=== PATIENT | male | born 1955 | race African-American/Black ===

== ENCOUNTER 2017-08-05 11:35 | Inpatient (IN) | payer MEDICARE ==
[2017-08-05 12:54] LABS: ALT (SGPT) 58 U/L (8-55); AST (SGOT) 108 U/L (5-34); Alkaline Phosphatase 51 U/L (40-150); Anion Gap 19 mmol/L (10-20); BUN (Urea Nitrogen) 11 mg/dL (8.4-25.7); Bilirubin, Total 0.8 mg/dL (0.2-1.2); CK (CPK) 3083 U/L (30-200); Calc. Creatinine Clearance 0 mL/min (70-130); Calcium 9.2 mg/dL (7.8-10.44); Carbon Dioxide 21 mmol/L (22-29); Chloride 107 mmol/L (98-107); Estimated GFR-MDRD Greater than 90; Globulin 2.9 g/dL (2.4-3.5); Protein, Total 6.7 g/dL (6.0-8.3)
[2017-08-05 12:56] LABS: Troponin I 0.044 ng/mL (< 0.028)
[2017-08-05 13:14] LABS: #Lymphocytes 0.9 thou/uL (1.20-3.40); #Monocytes 0.7 thou/uL (0.11-0.59); #Neutrophils 8.9 thou/uL (1.40-6.50); %Basophils 0.2 % (0.0-1.0); %Eosinophils 0.1 % (0.0-10.0); %Lymphocytes 8.1 % (21.0-51.0); %Monocytes 6.8 % (0.0-10.0); Hematocrit 44.2 % (42.0-52.0); Mean Platelet Volume 6.9 fL (7.4-10.4); Red Blood Cell (RBC) Count 4.38 mill/uL (4.70-6.10); White Blood Cell (WBC) Count 10.5 thou/uL (4.8-10.8)
[2017-08-05 13:21] LABS: Prothrombin Time 13.9 SEC (12.0-14.7)
[2017-08-05] MEDS ORDERED: Aspirin 325 MG TAB ONE (13:24)
[2017-08-05 13:29] LABS: PTT 28.7 SEC (22.9-36.1)
--- NOTE | 2017-08-05 14:00 | CT ---
CT BRAIN NONCONTRAST: DATE: 08/05/17. TIME: 12:42 p.m. HISTORY: A 61-year-old male with acute stroke symptoms: dysarthria and dysphagia. Dr. Hastings verbally gave this report to Dr. Le of the emergency department at 12:50 p.m. on 08/05/17 . COMPARISON: 09/30/15. FINDINGS: There is a new finding of several small- to moderate-sized patchy regions of moderately low attenuati on representing cytotoxic edema involving cortex and underlying white matter, involving various areas of the left lateral perisylvian frontal lobe and left parietal lobe. There is no significant mass e ffect, and no evidence of hemorrhage. Ventricles are normal in size and configuration. No extraaxia l fluid collection. Calvarium is intact. IMPRESSION: Subacute or acute multifocal infarctions in the left middle cerebral artery territory. CODE CR JN R POS: TERA
--- NOTE | 2017-08-05 15:27 | HP ---
PRIMARY CARE PHYSICIAN: [facility] call admission. REASON FOR ADMISSION: Stroke. HISTORY OF PRESENT ILLNESS: A 61-year-old -Faroese male with a history of hypertension and c oronary artery disease who presented to the emergency room with expressive aphasia. The patient woke up around 1:00 a.m. At that time, he urinated by himself and after that he was having difficulty ex pressing himself. When he was trying to talk to his daughter on the phone around 5:30 a.m., he was n ot able to come up with the words and that is why patient's daughter called paramedics and subsequent ly the patient was brought to the emergency room. Patient's symptoms started around 1:00 a.m. and patient's daughter from [place] called paramedics arou nd 10:30. Patient continued to have difficulty speaking. He did not have any focal motor or sensory symptoms. He denied any headache, chest pain, palpitation, dizziness, and fall. This patient had similar type of problem in 2016. At that time, he had MRI brain which showed stroke in left MCA territory and this time CT brain also showed multifocal infarct in left MCA territory. The patient was having difficulty providing detailed history because of his expressive aphasia. REVIEW OF SYSTEMS: The following complete review of systems was negative, unless otherwise mentioned in the HPI or below: Constitutional: Weight loss or gain, ability to conduct usual activities. Skin: Rash, itching. Eyes: Double vision, pain. ENT/Mouth: Nose bleeding, neck stiffness, pain, tenderness. Cardiovascular: Palpitations, dyspnea on exertion, orthopnea. Respiratory: Shortness of breath, wheezing, cough, hemoptysis, fever or night sweats. Gastrointestinal: Poor appetite, abdominal pain, heartburn, nausea, vomiting, constipation, or diarr hea. Genitourinary: Urgency, frequency, dysuria, nocturia. Musculoskeletal: Pain, swelling. Neurologic/Psychiatric: Anxiety, depression. Allergy/Immunologic: Skin rash, bleeding tendency. Please see my HPI for pertinent positive and negative. All other review of systems reviewed and nega tive except as mentioned in the HPI. ALLERGIES: No known drug allergies. CURRENT HOME MEDICATIONS: The patient did not have any medication with him at this point, but based on our hospital discharge summary from last year, patient was discharged on the following medications ; Aggrenox 1 capsule p.o. b.i.d., Tenormin 25 mg p.o. daily, Lipitor 80 mg p.o. daily, and Zetia 10 m g p.o. daily. PAST MEDICAL HISTORY: History of NM, required CABG in 1999, hypertension, dyslipidemia, history of C VA in 2016. PAST SURGICAL HISTORY: CABG in 1999. The patient also has laparoscopic surgical scar on his abdomen , but patient is not able to tell me whether it was related with gallbladder or appendix, left knee s urgery as well as right knee arthroscopic sugery. PAST PSYCHIATRIC HISTORY: Reviewed and negative. SOCIAL HISTORY: Patient drinks 2 or 3 beers on a daily basis. He denies any smoking. He denies any other illicit drug abuse. FAMILY HISTORY: As per previous report, patient does not have any strong family history of premature coronary artery disease, stroke or cancer. Father from lymphoma. EMERGENCY ROOM COURSE: Patient is given aspirin. PHYSICAL EXAMINATION: VITAL SIGNS: Currently, blood pressure 152/82, pulse 69, respiratory rate 18, temperature 98.6, satu ration 96% on room air, and weight 80.2 kilograms. GENERAL: Patient is currently alert, awake, no obvious acute distress. HEAD: Normocephalic, atraumatic. EYES: Pupils round, reactive to light. Extraocular muscle intact. No nystagmus. ENT: Oropharynx within normal limits. Moist mucous membranes. Uvula within normal limits and centr al. No pharyngeal erythema, no exudate. NECK: Supple, no JVD, no thyromegaly, no carotid bruit. LUNGS: Clear to auscultation without any rhonchi or rales. CARDIAC: S1 and S2 regular, soft systolic murmur noted. No gallop, no rub. ABDOMEN: Soft, bowel sounds present, nontender, nondistended. No organomegaly, no mass. Laparoscop ic surgical scar noted. Chest wall; previous CABG scar noted. No reproducible discomfort. BACK: Examination unremarkable, no CVA tenderness. EXTREMITIES: Upper extremity passive movements of all joints are normal. Lower extremity passive mo vements of all joints are normal. Good distal pulsation. SKIN: No skin rash. HEMATOLOGICAL SYSTEM: No lymphadenopathy. PSYCHIATRIC: Normal affect. NEUROLOGIC: The patient is currently alert and oriented x3. Cranial nerve III-XII normal. No facia l asymmetry. Motor 5/5 in all four limbs. Sensation bilaterally symmetrical. Reflexes normal. Minerva nter bilateral flexor. Only problem noted is patient does have expressive aphasia. Sometimes he als o has difficulty coming up with name. IMAGING DATA AND SIGNIFICANT LABORATORY DATA: 1. EKG based on my review reveals normal sinus rhythm, low voltage QRS. 2. CT brain showed subacute versus acute multifocal infarction in left middle cerebral artery territ ory. 3. CBC: WBC 10.5, hemoglobin 14.6, MCV 101, platelets 198. INR 1.1. 4. BMP: Sodium 143, potassium 3.9, chloride 107, carbon dioxide 21, BUN 11, creatinine 0.93, glucos e 114, calcium 9.2. 5. LFT: AST 108, ALT 58, alkaline phosphatase 51, albumin 3.8, CK 3083, CK-MB 15.5, troponin I 0.04 4. ASSESSMENT AND PLAN/IMPRESSION: 1. Acute cerebrovascular accident. This patient's symptoms of expressive aphasia started at 1:00 a. m. He was brought to the emergency room around 11. He is out of the TPA window. He only has expres sive aphasia without any focal motor or sensory deficits. His CT brain already confirmed acute/subac red devil multiple infarction in left MCA territory. He also had a similar stroke last year in 2016. At t his point, we will check urine drug screen, lipid profile tomorrow morning along with homocysteine. We will consult Neurology and entire Stroke team will evaluate this patient while in hospital. We wi ll continue with aspirin 325 mg p.o. daily. Given recurrent nature, we will also add Plavix 75 mg p. o. daily. We will monitor on telemetry floor for any arrhythmia. We will also obtain echocardiograp hy. We will do neuro check every 4 hourly. 2. Rhabdomyolysis. We will check TSH, probably related with his statin use, but if total CK going u p, then we will discontinue statin therapy. At this point, we will continue with IV fluid with NS 70 mL per hour and we will repeat total CK tomorrow. We will also do 3 sets of cardiac enzyme. 3. Elevated troponin likely related with his rhabdomyolysis given elevated total CK, CK-MB, and trop onin I is indeterminate range. We will do 3 sets of cardiac enzymes to rule out acute coronary syndr ome. Patient is already on aspirin and Plavix therapy. We are going to obtain echocardiography. 4. Abnormal liver function tests related with his alcohol use. We will check hepatitis profile to r ule out any hepatitis. We will repeat LFTs tomorrow. 5. Macrocytosis, likely related with his alcohol use. We will continue with folic acid and vitamin B12 and thiamine therapy. 6. Coronary artery disease with history of coronary artery bypass grafting. We will continue aspiri n and Plavix. We will also add Coreg 3.125 mg p.o. b.i.d. We will also add lisinopril 5 mg p.o. dom ly. 7. Dyslipidemia. We will check lipid profile and at this point, we will continue with Lipitor and Z etia as per home dosage. We will repeat CK level and LFT levels again tomorrow. 8. Deep venous thrombosis prophylaxis, Lovenox 40 mg subcu daily. 9. Gastrointestinal prophylaxis, Pepcid 20 mg p.o. b.i.d. 10. Code status: The patient is FULL CODE. Patient's daughter is surrogate decision maker. Disposition plan based on clinical course. We are expecting patient's stay in the hospital more than 2 midnights. Plan of care discussed with the patient in detail.
[2017-08-05] MEDS ORDERED: Nitroglycerin 0.4 MG TAB (25 Tab Bottle) SL PRN (15:44)
[2017-08-05] MEDS ORDERED: Sodium Chloride 0.65% Nasal 44 ML BOT EA NARE PRN (15:44)
[2017-08-05] MEDS ORDERED: Eucerin (Mineral Oil/Petrolatum,White) 30 gm Jar TOP PRN (15:44)
[2017-08-05] MEDS ORDERED: Loperamide HCl 2 MG CAP PO PRN (15:44)
[2017-08-05] MEDS ORDERED: Senokot 8.6 MG TAB PO PRN (15:44)
[2017-08-05] MEDS ORDERED: Ondansetron ODT 4 MG TAB PO PRN (15:44)
[2017-08-05] MEDS ORDERED: Ondansetron HCl/PF 4 MG/2 ML Vial IVP PRN (15:44)
[2017-08-05] MEDS ORDERED: Milk Of Magnesia 30 ML UDCUP PO PRN (15:44)
[2017-08-05] MEDS ORDERED: Loratadine 10 MG TAB PO PRN (15:44)
[2017-08-05] MEDS ORDERED: Artificial Tears 18 DROP/0.9 ML EA EYE PRN (15:44)
[2017-08-05] MEDS ORDERED: Mag-Al 1200 mg/1200 mg/30 ML UDCUP PO PRN (15:44)
[2017-08-05] MEDS ORDERED: hydrALAZINE 20 MG/ML VIAL SLOW IVP PRN (15:44)
[2017-08-05] MEDS ORDERED: Zolpidem Tartrate 5 MG TAB PO PRN (15:44)
[2017-08-05] MEDS ORDERED: Chloraseptic Spray 180 ml Bottle PO PRN (15:44)
[2017-08-05] MEDS ORDERED: Diabetic Tussin 200 MG/10 ML UDCUP PO PRN (15:44)
[2017-08-05 16:18] LABS: Troponin I 0.054 ng/mL (< 0.028)
[2017-08-05] MEDS ORDERED: ISOVUE-370 76%-LOCM 1 ML ONE (17:10)
[2017-08-05] MEDS: Sodium Chloride 0.9% 1,000 ML IV SCH (17:40)
[2017-08-05 18:05] VITALS: BMI 21.4
[2017-08-05 20:02] LABS: Troponin I 0.048 ng/mL (< 0.028)
--- NOTE | 2017-08-05 20:56 | MRI ---
MRI BRAIN: Date: 08-05-17 Provided Clinical History: Stroke. FINDINGS: Comparison is made with the CT examination performed 08-05-17. The ventricular system remains normal in size and morphology. There is no evidence for intracranial h emorrhage or mass effect. There are multifocal areas of predominately cortical and to some degree sub cortical diffusion restriction involving the left MCA distribution, predominately involving the left parietal and parietooccipital regions. No additional restricted diffusion is evident. Appropriate julieta w voids are seen within the major intracranial vessels. Occasional opacification of mastoid air cells bilaterally. The extracranial soft tissues and calvarial marrow signal demonstrate an otherwise unre markable MR appearance. There is cortical and subcortical predominately gyriform signal alteration in volving the right parietooccipital region which does not demonstrate corresponding restricted diffusi on and likely reflects subacute infarction in this region. IMPRESSION: 1. Restricted diffusion within the left MCA distribution compatible with recent infarction. 2. Likely subacute infarction involving the right parietooccipital region. Follow up brain MRI in 6-1 2 weeks with and without IV contrast is recommended to further evaluate this area. POS: TERA
--- NOTE | 2017-08-05 21:44 | CT ---
CT ANGIOGRAM OF THE GREAT VESSELS OF THE NECK WITH IV CONTRAST AND 3D RECONSTRUCTION: Date: 08-05-17 Provided Clinical History: Stroke. FINDINGS: The visualized lung apices appear clear. There is a common origin of the innominate and left common c arotid arteries. There is mild atherosclerotic plaque seen involving the regions of the carotid bulbs bilaterally. There is no evidence for a significant stenosis involving either common or internal car otid artery. The vertebral arteries appear patent. IMPRESSION: No evidence for significant internal carotid artery stenosis. POS: TERA
--- NOTE | 2017-08-05 22:13 | CON ---
DATE OF CONSULTATION: 07/26/2017 REFERRING PROVIDER: Dr. Kristen Vargas. REASON FOR CONSULTATION: Expressive aphasia. HISTORY OF PRESENT ILLNESS: Mr. Stanley is a pleasant 61-year-old -Sammarinese male who has been c onsidered for evaluation of aphasia. Part of the history is obtained from patient as well as patient 's dictated H&P note. Apparently, the patient reports that he had been in his normal state of health on last night, he had gone to sleep without any issues; around 1:30 at night, he woke up to go to [facility] bathroom; during that time, he started leaning toward his right side and he had an accident. He di d not seek any medical attention at that time and went back to sleep around 5:30 in the morning, he c alled his daughter and was not able to talk. His daughter noted that his speech was not making any s ense, which made her call the EMS and patient was brought to the [facility] around 12: 30. Patient did not complain of any headache, chest pain, palpitation, nausea, vomiting, abdominal p ain, numbness, tingling or weakness. He did not have any difficulty with balance. PAST MEDICAL HISTORY: Significant for hypertension, history of CT, coronary artery disease, dyslipid emia, and history of stroke in 2016. PAST SURGICAL HISTORY: Significant for CABG. SOCIAL HISTORY: He drinks 2-3 beers on a daily basis. He denies smoking, denies illicit drug use. FAMILY HISTORY: None significant. CURRENT MEDICATIONS: Please review MAR. ALLERGIES: No known drug allergies. REVIEW OF SYSTEMS: As mentioned above in HPI, is negative. PHYSICAL EXAMINATION: VITAL SIGNS: Blood pressure of 162/84, pulse of 58, temperature of 99, respirations of 18, O2 sats o f 100% on room air. GENERAL: Well-developed, well-nourished -Sammarinese male in no apparent distress. RESPIRATORY: Clear to auscultation bilaterally. CARDIOVASCULAR: Regular rate and rhythm. NEUROLOGIC: Mental status: The patient is awake, alert, oriented x2. Speech and language: Moderat e expressive aphasia noted. Cranial nerves: Pupils are 3 mm and reactive. Visual quick are full t o finger counts on both sides. Extraocular muscles are intact. No nystagmus is noted. Face is symm etric. Tongue and uvula are midline. Motor exam showed normal tone and bulk with a 5/5 strength in both upper and lower extremities. Sensory: Sensation is intact and symmetric. Deep tendon reflexes 2+ reflexes in both upper and lower extremities. Babinski: Plantar responses flexion bilaterally. Coordination intact to [id number] tapping bilaterally. LABORATORY DATA: Reviewed, which included CBC, coag panel, CMP, which is significant for an AST of 5 8, alkaline phosphatase of 3083, CK-MB of 15.5 and troponin of 0.054, otherwise unremarkable. IMAGING STUDIES: MRI brain without contrast was reviewed, which showed DWI restriction in the left M CA territory in the posterior parietal region. Carotid Doppler results were reviewed, which showed n o hemodynamically significant stenosis. IMPRESSION: 1. Left middle cerebral artery distribution ischemic infarct. 2. Expressive aphasia, due to #1. 3. Hypertension. 4. History of myocardial infarction. ASSESSMENT AND PLAN: Mr. Stanley is a pleasant 61-year-old -Sammarinese male who presented with ex pressive aphasia. He is found to have large left middle cerebral artery distribution ischemic infarc t. At this time, I would recommend obtaining echocardiogram with bubble study. I will also recommen d continuing patient on aspirin 325 mg daily for secondary stroke prevention. I would consult PT, OT , speech therapy. I would also recommend obtaining CT angiogram of the neck. Continue supportive ca re. Continue current medical management. Thank you for your consultation.
[2017-08-05] MEDS: Atorvastatin Calcium 40 MG TAB PO SCH (22:49)
[2017-08-05] MEDS: Carvedilol 3.125 MG TAB PO SCH (22:50)
[2017-08-05] MEDS: Famotidine 20 MG TAB PO SCH (22:50)
[2017-08-06 05:33] LABS: #Lymphocytes 1.9 thou/uL (1.20-3.40); #Monocytes 0.7 thou/uL (0.11-0.59); #Neutrophils 4.8 thou/uL (1.40-6.50); %Basophils 0.4 % (0.0-1.0); %Eosinophils 0.6 % (0.0-10.0); %Lymphocytes 25.7 % (21.0-51.0); %Monocytes 8.8 % (0.0-10.0); Red Blood Cell (RBC) Count 4.01 mill/uL (4.70-6.10); White Blood Cell (WBC) Count 7.5 thou/uL (4.8-10.8)
[2017-08-06 05:38] LABS: Prothrombin Time 14.4 SEC (12.0-14.7)
[2017-08-06 05:50] LABS: ALT (SGPT) 45 U/L (8-55); AST (SGOT) 84 U/L (5-34); Alkaline Phosphatase 43 U/L (40-150); Anion Gap 11 mmol/L (10-20); BUN (Urea Nitrogen) 10 mg/dL (8.4-25.7); Bilirubin, Total 0.9 mg/dL (0.2-1.2); CK (CPK) 2124 U/L (30-200); Calc. Creatinine Clearance 98 mL/min (70-130); Calcium 8.4 mg/dL (7.8-10.44); Carbon Dioxide 25 mmol/L (22-29); Chloride 109 mmol/L (98-107); Cholesterol 178 mg/dl (< 200 Desired); Estimated GFR-MDRD Greater than 90; Globulin 2.3 g/dL (2.4-3.5); LDL Cholesterol, Calculated 104 mg/dL; Protein, Total 5.4 g/dL (6.0-8.3)
[2017-08-06] MEDS: Sodium Chloride 0.9% 1,000 ML IV SCH ×2 (09:24→21:04)
[2017-08-06] MEDS: Ezetimibe 10 MG TAB PO SCH (09:25)
[2017-08-06] MEDS: Aspirin 325 MG TAB PO SCH (09:25)
[2017-08-06] MEDS: Carvedilol 3.125 MG TAB PO SCH ×2 (09:25→21:00)
[2017-08-06] MEDS: Lisinopril 5 MG TAB PO SCH (09:25)
[2017-08-06] MEDS: Famotidine 20 MG TAB PO SCH ×2 (09:25→20:59)
[2017-08-06] MEDS: Clopidogrel Bisulfate 75 MG TAB PO SCH (09:25)
[2017-08-06] MEDS: Folic Acid 1 MG TAB PO SCH (09:25)
[2017-08-06] MEDS: Cyanocobalamin (Vitamin B-12) 1,000 MCG TAB PO SCH (09:25)
[2017-08-06] MEDS: Enoxaparin Sodium 40 MG/0.4 ML SYRINGE SC SCH (09:27)
--- NOTE | 2017-08-06 11:29 | PDOC.PN ---
- Subjective Encounter Start Date: 08/06/17 Encounter Start Time: 07:20 -: old records requested/rev pt has some improvement in his expressive aphasia, no chest pain Patient seen and examined. No new complaints. No overnight events - Objective Resuscitation Status: Resuscitation Status FULL:Full Resuscitation MAR Reviewed: Yes Vital Signs & Weight: Vital Signs (12 hours) Temp Pulse Resp BP BP Pulse Ox 08/06/17 09:25 65 157/96 H 08/06/17 08:00 98.8 F 65 18 98 08/06/17 07:05 98.8 F 65 18 157/96 H 98 08/06/17 03:40 99.1 F 65 18 149/92 H 98 Weight Weight 153 lb 6.4 oz I&O: 08/05/17 08/06/17 08/07/17 06:59 06:59 06:59 Intake Total 310 240 Output Total 0 Balance 310 240 Result Diagrams: 08/06/17 05:14 08/06/17 05:14 Radiology Reviewed by me: Yes (MRI, CT angiography) EKG Reviewed by me: Yes (nsr) Phys Exam - Physical Examination Constitutional: NAD HEENT: PERRLA, moist MMs, sclera anicteric Neck: no JVD, supple Respiratory: no wheezing, no rales, no rhonchi Cardiovascular: RRR, no significant murmur, no rub Gastrointestinal: soft, non-tender, no distention, positive bowel sounds Musculoskeletal: no edema, pulses present Neurological: non-focal, normal sensation, moves all 4 limbs Lymphatic: no nodes Psychiatric: normal affect, A&O x 3 Skin: no rash, normal turgor Dx/Plan (1) Acute ischemic left MCA stroke Code(s): I63.512 - CEREB INFRC D/T UNSP OCCLS OR STENOS OF LEFT MID CEREB ART Status: Acute (2) Elevated troponin Code(s): R74.8 - ABNORMAL LEVELS OF OTHER SERUM ENZYMES Status: Acute (3) Rhabdomyolysis Code(s): M62.82 - RHABDOMYOLYSIS Status: Acute (4) CAD (coronary artery disease) Code(s): I25.10 - ATHSCL HEART DISEASE OF [place] CORONARY ARTERY W/O ANG PCTRS Status: Chronic (5) Dyslipidemia Code(s): E78.5 - HYPERLIPIDEMIA, UNSPECIFIED Status: Chronic (6) Hypertension Code(s): I10 - ESSENTIAL (PRIMARY) HYPERTENSION Status: Chronic (7) Macrocytic anemia Code(s): D53.9 - NUTRITIONAL ANEMIA, UNSPECIFIED Status: Chronic (8) Transaminitis Code(s): R74.0 - NONSPEC ELEV OF LEVELS OF TRANSAMNS & LACTIC ACID DEHYDRGNSE Status: Chronic - Plan cont current plan of care, PT/OT, speech therapy * medication reviewed as below * symptomatic treatment * medically stable with current treatment * discussed with family * today echo. Review of Systems - Review of Systems ENT: negative: Ear Pain, Ear Discharge, Nose Pain, Nose Discharge, Nose Congestion, Mouth Pain, Mouth Swelling, Throat Pain, Throat Swelling, Other Respiratory: negative: Cough, Dry, Shortness of Breath, Hemoptysis, SOB with Excertion, Pleuritic Pain, Sputum, Wheezing Cardiovascular: negative: Chest Pain, Palpitations, Orthopnea, Paroxysmal Noc. Dyspnea, Edema, Light Headedness, Other Gastrointestinal: negative: Nausea, Vomiting, Abdominal Pain, Diarrhea, Constipation, Melena, Hematochezia, Other Genitourinary: negative: Dysuria, Frequency, Incontinence, Hematuria, Retention , Other Musculoskeletal: negative: Neck Pain, Shoulder Pain, Arm Pain, Back Pain, Hand Pain, Leg Pain, Foot Pain, Other Skin: negative: Rash, Lesions, Tip, Bruising, Other - Medications/Allergies Allergies/Adverse Reactions: Allergies Allergy/AdvReac Type Severity Reaction Status Date / Time No Known Allergies Allergy Verified 08/05/17 18:02 Medications: Current Medications Acetaminophen (Tylenol) 650 mg PO Q4H PRN PRN Reason: Headache/Fever or Pain Hydrocodone Bitart/Acetaminophen ([place] 5/325) 1 tab PO Q4H PRN PRN Reason: Moderate Pain (4-6) Al Hydroxide/Mg Hydroxide (Maalox) 30 ml PO Q6H PRN PRN Reason: Heartburn or Indigestion Artificial Tears (Tears Naturale) 0 drop EA EYE PRN PRN PRN Reason: Dry Eyes Aspirin (Aspirin) 325 mg PO DAILY [facility] Last Admin: 08/06/17 09:25 Dose: 325 mg Atorvastatin Calcium (Lipitor) 80 mg PO HS [facility] Last Admin: 08/05/17 22:49 Dose: 80 mg Carvedilol (Coreg) 3.125 mg PO BID [facility] Last Admin: 08/06/17 09:25 Dose: 3.125 mg Clopidogrel Bisulfate (Plavix) 75 mg PO DAILY [facility] Last Admin: 08/06/17 09:25 Dose: 75 mg Cyanocobalamin (Vitamin B-12) 1,000 mcg PO DAILY [facility] Last Admin: 08/06/17 09:25 Dose: 1,000 mcg Ezetimibe (Zetia) 10 mg PO DAILY [facility] Last Admin: 08/06/17 09:25 Dose: 10 mg Enoxaparin Sodium (Lovenox) 40 mg SC 0900 [facility] Last Admin: 08/06/17 09:27 Dose: 40 mg Famotidine (Pepcid) 20 mg PO BID [facility] Last Admin: 08/06/17 09:25 Dose: 20 mg Folic Acid (Folvite) 1 mg PO DAILY [facility] Last Admin: 08/06/17 09:25 Dose: 1 mg Guaifenesin (Robitussin Sf) 200 mg PO Q4H PRN PRN Reason: Cough Hydralazine HCl (Apresoline) 10 mg SLOW IVP Q4H PRN PRN Reason: Systolic BP > 180 Sodium Chloride (Normal Saline 0.9%) 1,000 mls @ 70 mls/hr IV .[id number] [facility] Last Admin: 08/06/17 09:24 Dose: 1,000 mls Lisinopril (Zestril) 5 mg PO DAILY [facility] Last Admin: 08/06/17 09:25 Dose: 5 mg Loperamide HCl (Imodium) 2 mg PO PRN PRN PRN Reason: Diarrhea/Loose Stools Loratadine (Claritin) 10 mg PO DAILYPRN PRN PRN Reason: Sinus Symptoms Magnesium Hydroxide (Milk Of Magnesium) 30 ml PO DAILYPRN PRN PRN Reason: Constipation Mineral Oil/White Petrolatum (Eucerin Cream) 0 gm TOP BIDPRN PRN PRN Reason: Dry Skin Nitroglycerin (Nitrostat) 0.4 mg SL Q5MIN PRN PRN Reason: Chest Pain Ondansetron HCl (Zofran Odt) 4 mg PO Q6H PRN PRN Reason: Nausea/Vomiting Ondansetron HCl (Zofran) 4 mg IVP Q6H PRN PRN Reason: Nausea/Vomiting Phenol (Chloraseptic Cost 180 Ml Bot) 0 ml PO PRN PRN PRN Reason: Sore Throat Senna (Senokot) 2 tab PO HSPRN PRN PRN Reason: Constipation Sodium Chloride ([place] Nasal Cost 0.65%) 0 ml EA NARE QIDPRN PRN PRN Reason: Nasal Congestion Sodium Chloride (Flush - Normal Saline) 10 ml IVF Q12HR [facility] Last Admin: 08/06/17 09:26 Dose: 10 ml Sodium Chloride (Flush - Normal Saline) 10 ml IVF PRN PRN PRN Reason: Saline Flush Thiamine HCl (Thiamine) 100 mg PO DAILY [facility] Last Admin: 08/06/17 09:25 Dose: 100 mg Zolpidem Tartrate (Ambien) 5 mg PO HSPRN PRN PRN Reason: Insomnia
[2017-08-06] MEDS: Atorvastatin Calcium 40 MG TAB PO SCH (20:59)
[2017-08-07] MEDS: Cyanocobalamin (Vitamin B-12) 1,000 MCG TAB PO SCH (08:24)
[2017-08-07] MEDS: Aspirin 325 MG TAB PO SCH (08:24)
[2017-08-07] MEDS: Enoxaparin Sodium 40 MG/0.4 ML SYRINGE SC SCH (08:24)
[2017-08-07] MEDS: Carvedilol 3.125 MG TAB PO SCH ×2 (08:24→20:48)
[2017-08-07] MEDS: Lisinopril 5 MG TAB PO SCH (08:24)
[2017-08-07] MEDS: Clopidogrel Bisulfate 75 MG TAB PO SCH (08:24)
[2017-08-07] MEDS: Famotidine 20 MG TAB PO SCH ×2 (08:24→20:47)
[2017-08-07] MEDS: HYDROcodone/Acetaminophen 5/325 mg Tablet PO PRN ×3 (09:20→23:50)
[2017-08-07] MEDS: Ezetimibe 10 MG TAB PO SCH (09:21)
[2017-08-07] MEDS: Folic Acid 1 MG TAB PO SCH (09:21)
--- NOTE | 2017-08-07 12:34 | PDOC.PN ---
- Subjective Encounter Start Date: 08/07/17 Encounter Start Time: 10:20 Patient seen and examined. No new complaints. No overnight events - Objective Resuscitation Status: Resuscitation Status FULL:Full Resuscitation MAR Reviewed: Yes Vital Signs & Weight: Vital Signs (12 hours) Temp Pulse Pulse Pulse Resp BP BP 08/07/17 11:57 98.0 F 62 20 08/07/17 08:50 69 68 134/80 146/80 H 08/07/17 08:25 98.0 F 62 20 08/07/17 08:24 62 08/07/17 08:00 98.1 F 62 20 08/07/17 03:04 98.6 F 52 L 16 BP Pulse Ox 08/07/17 11:57 142/83 H 99 08/07/17 08:50 08/07/17 08:25 99 08/07/17 08:24 08/07/17 08:00 135/78 99 08/07/17 03:04 162/86 H 98 Weight Admit Weight 153 lb 6.4 oz Weight 157 lb 6.4 oz I&O: 08/06/17 08/07/17 08/08/17 06:59 06:59 06:59 Intake Total 310 3179 Output Total 0 350 Balance 310 2829 Result Diagrams: 08/06/17 05:14 08/06/17 05:14 Radiology Reviewed by me: Yes (echo) EKG Reviewed by me: Yes (nsr) Phys Exam - Physical Examination Constitutional: NAD HEENT: PERRLA, moist MMs, sclera anicteric Neck: no JVD, supple Respiratory: no wheezing, no rales, no rhonchi Cardiovascular: RRR, no significant murmur, no rub Gastrointestinal: soft, non-tender, no distention, positive bowel sounds Musculoskeletal: no edema, pulses present Neurological: non-focal, normal sensation Lymphatic: no nodes Psychiatric: normal affect Skin: no rash, normal turgor Dx/Plan (1) Acute ischemic left MCA stroke Code(s): I63.512 - CEREB INFRC D/T UNSP OCCLS OR STENOS OF LEFT MID CEREB ART Status: Acute (2) Elevated troponin Code(s): R74.8 - ABNORMAL LEVELS OF OTHER SERUM ENZYMES Status: Acute (3) Rhabdomyolysis Code(s): M62.82 - RHABDOMYOLYSIS Status: Acute (4) CAD (coronary artery disease) Code(s): I25.10 - ATHSCL HEART DISEASE OF [place] CORONARY ARTERY W/O ANG PCTRS Status: Chronic (5) Dyslipidemia Code(s): E78.5 - HYPERLIPIDEMIA, UNSPECIFIED Status: Chronic (6) Hypertension Code(s): I10 - ESSENTIAL (PRIMARY) HYPERTENSION Status: Chronic (7) Macrocytic anemia Code(s): D53.9 - NUTRITIONAL ANEMIA, UNSPECIFIED Status: Chronic (8) Transaminitis Code(s): R74.0 - NONSPEC ELEV OF LEVELS OF TRANSAMNS & LACTIC ACID DEHYDRGNSE Status: Chronic - Plan cont current plan of care, PT/OT, speech therapy * medication reviewed as below * symptomatic treatment * stable for discharge * see discharge warren. Review of Systems - Review of Systems ENT: negative: Ear Pain, Ear Discharge, Nose Pain, Nose Discharge, Nose Congestion, Mouth Pain, Mouth Swelling, Throat Pain, Throat Swelling, Other Respiratory: negative: Cough, Dry, Shortness of Breath, Hemoptysis, SOB with Excertion, Pleuritic Pain, Sputum, Wheezing Cardiovascular: negative: chest pain, palpitations, orthopnea, paroxysmal nocturnal dyspnea, edema, light headedness, other Gastrointestinal: negative: Nausea, Vomiting, Abdominal Pain, Diarrhea, Constipation, Melena, Hematochezia, Other Genitourinary: negative: Dysuria, Frequency, Incontinence, Hematuria, Retention , Other Musculoskeletal: negative: Neck Pain, Shoulder Pain, Arm Pain, Back Pain, Hand Pain, Leg Pain, Foot Pain, Other Skin: negative: Rash, Lesions, Tip, Bruising, Other - Medications/Allergies Allergies/Adverse Reactions: Allergies Allergy/AdvReac Type Severity Reaction Status Date / Time No Known Allergies Allergy Verified 08/05/17 18:02 Medications: Current Medications Acetaminophen (Tylenol) 650 mg PO Q4H PRN PRN Reason: Headache/Fever or Pain Hydrocodone Bitart/Acetaminophen ([place] 5/325) 1 tab PO Q4H PRN PRN Reason: Moderate Pain (4-6) Last Admin: 08/07/17 09:20 Dose: 1 tab Al Hydroxide/Mg Hydroxide (Maalox) 30 ml PO Q6H PRN PRN Reason: Heartburn or Indigestion Artificial Tears (Tears Naturale) 0 drop EA EYE PRN PRN PRN Reason: Dry Eyes Aspirin (Aspirin) 325 mg PO DAILY REPLACED BY [facility] Last Admin: 08/07/17 08:24 Dose: 325 mg Atorvastatin Calcium (Lipitor) 80 mg PO HS REPLACED BY [facility] Last Admin: 08/06/17 20:59 Dose: 80 mg Carvedilol (Coreg) 3.125 mg PO BID REPLACED BY [facility] Last Admin: 08/07/17 08:24 Dose: 3.125 mg Clopidogrel Bisulfate (Plavix) 75 mg PO DAILY REPLACED BY [facility] Last Admin: 08/07/17 08:24 Dose: 75 mg Cyanocobalamin (Vitamin B-12) 1,000 mcg PO DAILY REPLACED BY [facility] Last Admin: 08/07/17 08:24 Dose: 1,000 mcg Ezetimibe (Zetia) 10 mg PO DAILY REPLACED BY [facility] Last Admin: 08/07/17 09:21 Dose: 10 mg Enoxaparin Sodium (Lovenox) 40 mg SC 0900 REPLACED BY [facility] Last Admin: 08/07/17 08:24 Dose: 40 mg Famotidine (Pepcid) 20 mg PO BID REPLACED BY [facility] Last Admin: 08/07/17 08:24 Dose: 20 mg Folic Acid (Folvite) 1 mg PO DAILY REPLACED BY [facility] Last Admin: 08/07/17 09:21 Dose: 1 mg Guaifenesin (Robitussin Sf) 200 mg PO Q4H PRN PRN Reason: Cough Hydralazine HCl (Apresoline) 10 mg SLOW IVP Q4H PRN PRN Reason: Systolic BP > 180 Sodium Chloride (Normal Saline 0.9%) 1,000 mls @ 70 mls/hr IV .[id number] REPLACED BY [facility] Last Admin: 08/06/17 21:04 Dose: 1,000 mls Lisinopril (Zestril) 5 mg PO DAILY REPLACED BY [facility] Last Admin: 08/07/17 08:24 Dose: 5 mg Loperamide HCl (Imodium) 2 mg PO PRN PRN PRN Reason: Diarrhea/Loose Stools Loratadine (Claritin) 10 mg PO DAILYPRN PRN PRN Reason: Sinus Symptoms Magnesium Hydroxide (Milk Of Magnesium) 30 ml PO DAILYPRN PRN PRN Reason: Constipation Mineral Oil/White Petrolatum (Eucerin Cream) 0 gm TOP BIDPRN PRN PRN Reason: Dry Skin Nitroglycerin (Nitrostat) 0.4 mg SL Q5MIN PRN PRN Reason: Chest Pain Ondansetron HCl (Zofran Odt) 4 mg PO Q6H PRN PRN Reason: Nausea/Vomiting Ondansetron HCl (Zofran) 4 mg IVP Q6H PRN PRN Reason: Nausea/Vomiting Phenol (Chloraseptic [place] 180 Ml Bot) 0 ml PO PRN PRN PRN Reason: Sore Throat Senna (Senokot) 2 tab PO HSPRN PRN PRN Reason: Constipation Sodium Chloride ([place] Nasal [place] 0.65%) 0 ml EA NARE QIDPRN PRN PRN Reason: Nasal Congestion Sodium Chloride (Flush - Normal Saline) 10 ml IVF Q12HR REPLACED BY [facility] Last Admin: 08/07/17 09:05 Dose: Not Given Sodium Chloride (Flush - Normal Saline) 10 ml IVF PRN PRN PRN Reason: Saline Flush Thiamine HCl (Thiamine) 100 mg PO DAILY REPLACED BY [facility] Last Admin: 08/07/17 08:22 Dose: Not Given Zolpidem Tartrate (Ambien) 5 mg PO HSPRN PRN PRN Reason: Insomnia
[2017-08-07] MEDS: Sodium Chloride 0.9% 1,000 ML IV SCH (13:26)
[2017-08-07] MEDS: Atorvastatin Calcium 40 MG TAB PO SCH (20:48)
[2017-08-08] MEDS: Sodium Chloride 0.9% 1,000 ML IV SCH ×2 (01:59→04:32)
[2017-08-08] MEDS: Acetaminophen 325 MG TAB PO PRN ×3 (04:30→20:06)
[2017-08-08 07:33] LABS: #Lymphocytes 0.8 thou/uL (1.20-3.40); #Monocytes 0.9 thou/uL (0.11-0.59); #Neutrophils 5.8 thou/uL (1.40-6.50); %Basophils 0.2 % (0.0-1.0); %Eosinophils 0.2 % (0.0-10.0); %Lymphocytes 10.8 % (21.0-51.0); %Monocytes 11.8 % (0.0-10.0); Hematocrit 43.9 % (42.0-52.0); Mean Platelet Volume 8.2 fL (7.4-10.4); Red Blood Cell (RBC) Count 4.35 mill/uL (4.70-6.10); White Blood Cell (WBC) Count 7.5 thou/uL (4.8-10.8)
--- NOTE | 2017-08-08 07:52 | RAD ---
TWO VIEWS CHEST: HISTORY: Fever. FINDINGS: PA and lateral views of the chest were obtained. The lungs are well aerated. No evidence of active intrathoracic disease is seen. No evidence of effusions, pneumonia, or pneumothorax is seen. Sterno dony wires are seen. IMPRESSION: Normal 2 views chest. POS: [facility]
[2017-08-08 08:12] LABS: Anion Gap 15 mmol/L (10-20); BUN (Urea Nitrogen) 4 mg/dL (8.4-25.7); CK (CPK) 980 U/L (30-200); Calc. Creatinine Clearance 99 mL/min (70-130); Calcium 8.7 mg/dL (7.8-10.44); Carbon Dioxide 21 mmol/L (22-29); Chloride 108 mmol/L (98-107); Estimated GFR-MDRD Greater than 90
[2017-08-08] MEDS: Aspirin 325 MG TAB PO SCH (09:09)
[2017-08-08] MEDS: Ezetimibe 10 MG TAB PO SCH (09:09)
[2017-08-08] MEDS: Cyanocobalamin (Vitamin B-12) 1,000 MCG TAB PO SCH (09:09)
[2017-08-08] MEDS: Clopidogrel Bisulfate 75 MG TAB PO SCH (09:09)
[2017-08-08] MEDS: Folic Acid 1 MG TAB PO SCH (09:09)
[2017-08-08] MEDS: Lisinopril 5 MG TAB PO SCH (09:09)
[2017-08-08] MEDS: Carvedilol 3.125 MG TAB PO SCH ×2 (09:10→20:07)
[2017-08-08] MEDS: Famotidine 20 MG TAB PO SCH ×2 (09:10→20:07)
[2017-08-08] MEDS: Enoxaparin Sodium 40 MG/0.4 ML SYRINGE SC SCH (09:10)
[2017-08-08] MEDS ORDERED: Ketorolac Tromethamine 30 MG/ML VIAL IVP PRN (09:12)
[2017-08-08] MEDS ORDERED: Colchicine 0.6 MG TAB PO SCH (09:45)
--- NOTE | 2017-08-08 10:39 | RAD ---
RIGHT KNEE FOUR VIEWS: History: Right knee swelling. FINDINGS/IMPRESSION: There are marked degenerative changes in the right knee. No fracture or dislocation or bony destructi on is seen. A joint effusion is present. POS: [facility]
[2017-08-08 11:31] LABS: BF Reference Range Comment Note:
--- NOTE | 2017-08-08 11:33 | PDOC.PN ---
- Subjective Encounter Start Date: 08/08/17 Encounter Start Time: 07:10 last night pt had fever, he developed right knee swelling, - Objective Resuscitation Status: Resuscitation Status FULL:Full Resuscitation MAR Reviewed: Yes Vital Signs & Weight: Vital Signs (12 hours) Temp Pulse Resp BP Pulse Ox 08/08/17 09:09 75 08/08/17 08:00 99.2 F 75 16 159/59 H 100 08/08/17 03:38 100.0 F H 73 14 157/95 H 99 08/07/17 23:38 102.2 F H 72 16 155/83 H 100 Weight Admit Weight 153 lb 6.4 oz Weight 157 lb 6.4 oz I&O: 08/07/17 08/08/17 08/09/17 06:59 06:59 06:59 Intake Total 3179 1012 Output Total 350 Balance 2829 1012 Result Diagrams: 08/08/17 07:22 08/08/17 07:22 Radiology Reviewed by me: Yes (chest xray is normal) EKG Reviewed by me: Yes (nsr) Phys Exam - Physical Examination Constitutional: NAD HEENT: PERRLA, moist MMs, sclera anicteric Neck: no JVD, supple Respiratory: no wheezing, no rales, no rhonchi Cardiovascular: RRR, no significant murmur, no rub Gastrointestinal: soft, non-tender, no distention, positive bowel sounds Musculoskeletal: no edema, pulses present right knee swelling Neurological: non-focal, normal sensation, moves all 4 limbs expressive aphasia Lymphatic: no nodes Psychiatric: normal affect, A&O x 3 Skin: no rash, normal turgor Dx/Plan (1) Acute ischemic left MCA stroke Code(s): I63.512 - CEREB INFRC D/T UNSP OCCLS OR STENOS OF LEFT MID CEREB ART Status: Acute (2) Elevated troponin Code(s): R74.8 - ABNORMAL LEVELS OF OTHER SERUM ENZYMES Status: Acute (3) Rhabdomyolysis Code(s): M62.82 - RHABDOMYOLYSIS Status: Acute (4) CAD (coronary artery disease) Code(s): I25.10 - ATHSCL HEART DISEASE OF [place] CORONARY ARTERY W/O ANG PCTRS Status: Chronic (5) Dyslipidemia Code(s): E78.5 - HYPERLIPIDEMIA, UNSPECIFIED Status: Chronic (6) Hypertension Code(s): I10 - ESSENTIAL (PRIMARY) HYPERTENSION Status: Chronic (7) Macrocytic anemia Code(s): D53.9 - NUTRITIONAL ANEMIA, UNSPECIFIED Status: Chronic (8) Transaminitis Code(s): R74.0 - NONSPEC ELEV OF LEVELS OF TRANSAMNS & LACTIC ACID DEHYDRGNSE Status: Chronic (9) Fever Code(s): R50.9 - FEVER, UNSPECIFIED Status: Acute (10) Swelling of knee joint, right Code(s): M25.461 - EFFUSION, RIGHT KNEE Status: Acute (11) Systolic dysfunction Code(s): I51.9 - HEART DISEASE, UNSPECIFIED Status: Acute - Plan cont current plan of care * DC IVF * chest xray is normal * will send blood and urine culture * influenza is negative * will get xray right knee * will consult ortho for arthrocentesis * suspected for acute gout vs sepsis (unlikely) * his CRP is high but uric acid is normal ?? CPPD * i will start colchicine and toradol as needed * will avoid antibiotic for now * medication reviewed as below * symptomatic treatment. Review of Systems - Review of Systems Constitutional: fever. negative: chills, sweats, weakness, malaise, other ENT: negative: Ear Pain, Ear Discharge, Nose Pain, Nose Discharge, Nose Congestion, Mouth Pain, Mouth Swelling, Throat Pain, Throat Swelling, Other Respiratory: negative: Cough, Dry, Shortness of Breath, Hemoptysis, SOB with Excertion, Pleuritic Pain, Sputum, Wheezing Cardiovascular: negative: chest pain, palpitations, orthopnea, paroxysmal nocturnal dyspnea, edema, light headedness, other Gastrointestinal: negative: Nausea, Vomiting, Abdominal Pain, Diarrhea, Constipation, Melena, Hematochezia, Other Genitourinary: negative: Dysuria, Frequency, Incontinence, Hematuria, Retention , Other Musculoskeletal: Leg Pain. negative: Neck Pain, Shoulder Pain, Arm Pain, Back Pain, Hand Pain, Foot Pain, Other - Medications/Allergies Allergies/Adverse Reactions: Allergies Allergy/AdvReac Type Severity Reaction Status Date / Time No Known Allergies Allergy Verified 08/05/17 18:02 Medications: Current Medications Acetaminophen (Tylenol) 650 mg PO Q4H PRN PRN Reason: Headache/Fever or Pain Last Admin: 08/08/17 04:30 Dose: 650 mg Hydrocodone Bitart/Acetaminophen ([place] 5/325) 1 tab PO Q4H PRN PRN Reason: Moderate Pain (4-6) Last Admin: 08/07/17 23:50 Dose: 1 tab Al Hydroxide/Mg Hydroxide (Maalox) 30 ml PO Q6H PRN PRN Reason: Heartburn or Indigestion Artificial Tears (Tears Naturale) 0 drop EA EYE PRN PRN PRN Reason: Dry Eyes Aspirin (Aspirin) 325 mg PO DAILY [facility] Last Admin: 08/08/17 09:09 Dose: 325 mg Atorvastatin Calcium (Lipitor) 80 mg PO HS [facility] Last Admin: 08/07/17 20:48 Dose: 80 mg Carvedilol (Coreg) 3.125 mg PO BID [facility] Last Admin: 08/08/17 09:10 Dose: 3.125 mg Clopidogrel Bisulfate (Plavix) 75 mg PO DAILY [facility] Last Admin: 08/08/17 09:09 Dose: 75 mg Colchicine (Colcrys) 0.6 mg PO BID [facility] Colchicine (Colcrys) 0.6 mg PO NOW [facility] Stop: 08/08/17 11:45 Cyanocobalamin (Vitamin B-12) 1,000 mcg PO DAILY [facility] Last Admin: 08/08/17 09:09 Dose: 1,000 mcg Ezetimibe (Zetia) 10 mg PO DAILY [facility] Last Admin: 08/08/17 09:09 Dose: 10 mg Enoxaparin Sodium (Lovenox) 40 mg SC 0900 [facility] Last Admin: 08/08/17 09:10 Dose: 40 mg Famotidine (Pepcid) 20 mg PO BID [facility] Last Admin: 08/08/17 09:10 Dose: 20 mg Folic Acid (Folvite) 1 mg PO DAILY [facility] Last Admin: 08/08/17 09:09 Dose: 1 mg Guaifenesin (Robitussin Sf) 200 mg PO Q4H PRN PRN Reason: Cough Hydralazine HCl (Apresoline) 10 mg SLOW IVP Q4H PRN PRN Reason: Systolic BP > 180 Sodium Chloride (Normal Saline 0.9%) 1,000 mls @ 70 mls/hr IV .[id number] [facility] Last Admin: 08/08/17 04:32 Dose: 1,000 mls Ketorolac Tromethamine (Toradol) 15 mg IVP Q6H PRN PRN Reason: Pain Stop: 08/13/17 09:13 Lisinopril (Zestril) 5 mg PO DAILY [facility] Last Admin: 08/08/17 09:09 Dose: 5 mg Loperamide HCl (Imodium) 2 mg PO PRN PRN PRN Reason: Diarrhea/Loose Stools Loratadine (Claritin) 10 mg PO DAILYPRN PRN PRN Reason: Sinus Symptoms Magnesium Hydroxide (Milk Of Magnesium) 30 ml PO DAILYPRN PRN PRN Reason: Constipation Mineral Oil/White Petrolatum (Eucerin Cream) 0 gm TOP BIDPRN PRN PRN Reason: Dry Skin Nitroglycerin (Nitrostat) 0.4 mg SL Q5MIN PRN PRN Reason: Chest Pain Ondansetron HCl (Zofran Odt) 4 mg PO Q6H PRN PRN Reason: Nausea/Vomiting Ondansetron HCl (Zofran) 4 mg IVP Q6H PRN PRN Reason: Nausea/Vomiting Phenol (Chloraseptic [place] 180 Ml Bot) 0 ml PO PRN PRN PRN Reason: Sore Throat Senna (Senokot) 2 tab PO HSPRN PRN PRN Reason: Constipation Sodium Chloride ([place] Nasal [place] 0.65%) 0 ml EA NARE QIDPRN PRN PRN Reason: Nasal Congestion Sodium Chloride (Flush - Normal Saline) 10 ml IVF Q12HR [facility] Last Admin: 08/08/17 09:10 Dose: 10 ml Sodium Chloride (Flush - Normal Saline) 10 ml IVF PRN PRN PRN Reason: Saline Flush Thiamine HCl (Thiamine) 100 mg PO DAILY [facility] Last Admin: 08/08/17 09:09 Dose: 100 mg Zolpidem Tartrate (Ambien) 5 mg PO HSPRN PRN PRN Reason: Insomnia
[2017-08-08 11:52] LABS: Bilirubin Negative (Negative); Blood, Urine Negative (Negative); Glucose, Urine (Dipstick) Negative (Negative); Ketone, Urine 15 mg/dL (Negative); Nitrite Negative (Negative); Protein, Urine (Dipstick) Negative (Neg-Trace)
[2017-08-08 11:56] LABS: Bacteria/HPF None Seen HPF (None Seen); Hyaline Casts/LPF 0-3 HYALINE CAST LPF (0-3 Hyaline); RBC/HPF 0-3 HPF (0-3); Squamous Epithelial None Seen HPF (0-3); WBC/HPF None Seen HPF (0-3)
[2017-08-08 12:02] LABS: Amphetamine Not Detected (NotDetected); Methadone Not Detected (NotDetected); Methamphetamine Not Detected (NotDetected)
[2017-08-08 12:37] LABS: BF Color Yellow
[2017-08-08 12:38] LABS: RBC Count-Automated 20000 /cumm
[2017-08-08 12:58] LABS: Synovial Fluid, Glucose 38 mg/dL (Not Available); Synovial Fluid, Protein 2.9 g/dL (Not Available)
[2017-08-08 13:15] LABS: Number Cells Counted-Fluids 100
--- NOTE | 2017-08-08 13:26 | CON ---
ORTHOPEDIC CONSULTATION NOTE DATE OF CONSULTATION: 08/08/2017 REQUESTING PHYSICIAN: Dr. Kristen Vargas. CONSULTING PHYSICIAN: Dr. Aleksandr Pritchard. REASON FOR CONSULTATION: Right knee effusion. BRIEF CLINICAL HISTORY: Mr. Goss is a 61-year-old -[place] male who [facility] after he had an abrupt onset of speech aphasia. A lacunar infarct was confirme d and his symptomatology has been slowly improving, but he still has an expressive aphasia. It is mi ld, but his vocabulary is still relatively full. He has been running temperatures up to 102.2 in the last 24 hours. He does not have a white count, but the Medicine Service has struggled to find a bobby rce for his fevers. Our service was consulted for evaluation of a swollen right knee, which has been a little worse than it normally is and his baseline is arthritic, but more recently he has had progr essive swelling and discomfort in his knee. PAST MEDICAL HISTORY: Significant for peripheral vascular disease, hypertension, hyperlipidemia and he has had a coronary artery bypass graft in 1999 and a prior stroke last year. PHYSICAL EXAMINATION: Visual inspection of the right lower extremity demonstrates him having indeed a +2-3 effusion over the right knee. It is tender, it is warm and quite swollen and tense. Pain wit h range of motion is appreciated. He is neurovascularly intact in the right lower extremity, but the re is no gross erythema noted. IMAGING STUDIES: Two views of the right knee demonstrates significant severe tricompartmental osteoa rthritic changes with significant articular osteophytes and an effusion appreciated on lateral view. IMPRESSION: 1. Deep white matter cerebrovascular accident with resultant expressive aphasia. 2. Fever of unknown origin. 3. Right knee, severe effusion. PLAN: 1. We will perform arthrocentesis at the bedside and send contents for laboratory evaluation determi kali if this is a septic arthritis overlying an arthritic effusion. The risks, benefits, options, alt ernatives and rationale for proceeding with right knee arthrocentesis has been explained in great det ail with the patient. He is ready to proceed. All questions were answered. No guarantee of outcome has been stated or implied. 2. Please see procedure note.
[2017-08-08 13:41] LABS: Synovial Fluid, Uric Acid Less than 5.0 mg/dL (Not Available)
--- NOTE | 2017-08-08 15:39 | OP ---
DATE OF PROCEDURE: 08/08/2017 SURGEON: Sukhdev Olivia PA-C. ANESTHESIA: Skin wheal, 1% without epinephrine PROCEDURE: Needle arthrocentesis, right knee. PREPROCEDURAL DIAGNOSIS: Right knee severe effusion. INDICATIONS FOR SURGERY: Wolfgang is a 61-year-old white male with an unknown fever. We were requested by the Medicine Service to evaluate his right knee effusion as a possible source for his fever. PROCEDURE IN DETAIL: After informed consent was obtained, the patient was positioned appropriately a nd the right knee was then prepped and draped in the usual sterile fashion. Skin wheal anesthesia wa s obtained with a 1% Xylocaine with a 25-gauge needle down to the capsule. I then entered the capsul e with an 18-gauge 1/2-inch needle with nice return of unobstructed yellow serous cloudy fluid. A to rosenda of 145 mL was removed from the patient's right knee. The needle was then withdrawn. Sterile justo ssing was applied. The procedure was terminated without any complications. Specimen will be sent fo r Gram stain, culture and sensitivity, crystal analysis, cell count with differential, glucose, prote in, and chemistry. We will follow up with the Medicine Service after results return.
[2017-08-08] MEDS: Atorvastatin Calcium 40 MG TAB PO SCH (20:06)
[2017-08-08] MEDS: Colchicine 0.6 MG TAB PO SCH (20:06)
[2017-08-09] MEDS: Acetaminophen 325 MG TAB PO PRN (06:41)
[2017-08-09] MEDS ORDERED: cefTRIAXone\\ROCEPHIN 2 GM in Sodium Chloride 0.9% 100 ML IVPB SCH (08:00)
[2017-08-09] MEDS ORDERED: Vancomycin HCl 1 GM in Premix Bag 1 BAG IVPB SCH (09:00)
[2017-08-09] MEDS: Cyanocobalamin (Vitamin B-12) 1,000 MCG TAB PO SCH (09:32)
[2017-08-09] MEDS: Aspirin 325 MG TAB PO SCH (09:32)
[2017-08-09] MEDS: Enoxaparin Sodium 40 MG/0.4 ML SYRINGE SC SCH (09:32)
[2017-08-09] MEDS: Famotidine 20 MG TAB PO SCH ×2 (09:32→20:33)
[2017-08-09] MEDS: Carvedilol 3.125 MG TAB PO SCH ×2 (09:33→20:31)
[2017-08-09] MEDS: Folic Acid 1 MG TAB PO SCH (09:33)
[2017-08-09] MEDS: Clopidogrel Bisulfate 75 MG TAB PO SCH (09:33)
[2017-08-09] MEDS: Ezetimibe 10 MG TAB PO SCH (09:33)
[2017-08-09] MEDS: Colchicine 0.6 MG TAB PO SCH ×2 (09:34→20:31)
[2017-08-09] MEDS: Lisinopril 5 MG TAB PO SCH (09:34)
[2017-08-09] MEDS ORDERED: predniSONE 20 MG TAB PO SCH (10:15)
--- NOTE | 2017-08-09 10:19 | PDOC.PN ---
- Subjective Encounter Start Date: 08/09/17 Encounter Start Time: 07:00 last night pt had fever, he still has swelling in right knee, clinically pt feels better and rather wanted to go home - Objective Resuscitation Status: Resuscitation Status FULL:Full Resuscitation MAR Reviewed: Yes Vital Signs & Weight: Vital Signs (12 hours) Temp Pulse Resp BP BP Pulse Ox 08/09/17 09:34 86 129/74 08/09/17 08:00 100.4 F H 86 18 96 08/09/17 07:58 100.4 F H 86 18 129/74 96 08/09/17 04:00 102.8 F H 83 18 151/86 H 94 L 08/09/17 00:00 100.2 F H 69 18 147/84 H 96 Weight Admit Weight 153 lb 6.4 oz Weight 157 lb 6.4 oz I&O: 08/08/17 08/09/17 08/10/17 06:59 06:59 06:59 Intake Total 1012 1200 Balance 1012 1200 Result Diagrams: 08/08/17 07:22 08/08/17 07:22 EKG Reviewed by me: Yes (nsr) Phys Exam - Physical Examination Constitutional: NAD HEENT: PERRLA, moist MMs, sclera anicteric Neck: no JVD, supple Respiratory: no wheezing, no rales, no rhonchi Cardiovascular: RRR, no significant murmur, no rub Gastrointestinal: soft, non-tender, no distention, positive bowel sounds Musculoskeletal: pulses present right knee swelling Neurological: non-focal, normal sensation, moves all 4 limbs expressive aphasia Psychiatric: normal affect, A&O x 3 Skin: no rash, normal turgor Dx/Plan (1) Acute ischemic left MCA stroke Code(s): I63.512 - CEREB INFRC D/T UNSP OCCLS OR STENOS OF LEFT MID CEREB ART Status: Acute (2) Elevated troponin Code(s): R74.8 - ABNORMAL LEVELS OF OTHER SERUM ENZYMES Status: Acute (3) Rhabdomyolysis Code(s): M62.82 - RHABDOMYOLYSIS Status: Acute (4) CAD (coronary artery disease) Code(s): I25.10 - ATHSCL HEART DISEASE OF [place] CORONARY ARTERY W/O ANG PCTRS Status: Chronic (5) Dyslipidemia Code(s): E78.5 - HYPERLIPIDEMIA, UNSPECIFIED Status: Chronic (6) Hypertension Code(s): I10 - ESSENTIAL (PRIMARY) HYPERTENSION Status: Chronic (7) Macrocytic anemia Code(s): D53.9 - NUTRITIONAL ANEMIA, UNSPECIFIED Status: Chronic (8) Transaminitis Code(s): R74.0 - NONSPEC ELEV OF LEVELS OF TRANSAMNS & LACTIC ACID DEHYDRGNSE Status: Chronic (9) Fever Code(s): R50.9 - FEVER, UNSPECIFIED Status: Acute (10) Swelling of knee joint, right Code(s): M25.461 - EFFUSION, RIGHT KNEE Status: Acute (11) Systolic dysfunction Code(s): I51.9 - HEART DISEASE, UNSPECIFIED Status: Acute (12) Acute gout Code(s): M10.9 - GOUT, UNSPECIFIED Status: Acute Qualifiers: Gout site: knee Laterality: right - Plan cont current plan of care, continue antibiotics * will add prednsione 40 mg po daily * continue colchicine and toradol as needed * will get opinion of ID * crystel is positive for pseudogout * medication reviewed as below * symptomatic treatment. Review of Systems - Review of Systems ENT: negative: Ear Pain, Ear Discharge, Nose Pain, Nose Discharge, Nose Congestion, Mouth Pain, Mouth Swelling, Throat Pain, Throat Swelling, Other Respiratory: negative: Cough, Dry, Shortness of Breath, Hemoptysis, SOB with Excertion, Pleuritic Pain, Sputum, Wheezing Cardiovascular: negative: chest pain, palpitations, orthopnea, paroxysmal nocturnal dyspnea, edema, light headedness, other Gastrointestinal: negative: Nausea, Vomiting, Abdominal Pain, Diarrhea, Constipation, Melena, Hematochezia, Other Genitourinary: negative: Dysuria, Frequency, Incontinence, Hematuria, Retention , Other Musculoskeletal: negative: Neck Pain, Shoulder Pain, Arm Pain, Back Pain, Hand Pain, Leg Pain, Foot Pain, Other Skin: negative: Rash, Lesions, Tip, Bruising, Other - Medications/Allergies Allergies/Adverse Reactions: Allergies Allergy/AdvReac Type Severity Reaction Status Date / Time No Known Allergies Allergy Verified 08/05/17 18:02 Medications: Current Medications Acetaminophen (Tylenol) 650 mg PO Q4H PRN PRN Reason: Headache/Fever or Pain Last Admin: 08/09/17 06:41 Dose: 650 mg Hydrocodone Bitart/Acetaminophen ([place] 5/325) 1 tab PO Q4H PRN PRN Reason: Moderate Pain (4-6) Last Admin: 08/07/17 23:50 Dose: 1 tab Al Hydroxide/Mg Hydroxide (Maalox) 30 ml PO Q6H PRN PRN Reason: Heartburn or Indigestion Artificial Tears (Tears Naturale) 0 drop EA EYE PRN PRN PRN Reason: Dry Eyes Aspirin (Aspirin) 325 mg PO DAILY [facility] Last Admin: 08/09/17 09:32 Dose: 325 mg Atorvastatin Calcium (Lipitor) 80 mg PO HS [facility] Last Admin: 08/08/17 20:06 Dose: 80 mg Carvedilol (Coreg) 3.125 mg PO BID [facility] Last Admin: 08/09/17 09:33 Dose: 3.125 mg Clopidogrel Bisulfate (Plavix) 75 mg PO DAILY [facility] Last Admin: 08/09/17 09:33 Dose: 75 mg Colchicine (Colcrys) 0.6 mg PO BID [facility] Last Admin: 08/09/17 09:34 Dose: 0.6 mg Cyanocobalamin (Vitamin B-12) 1,000 mcg PO DAILY [facility] Last Admin: 08/09/17 09:32 Dose: 1,000 mcg Ezetimibe (Zetia) 10 mg PO DAILY [facility] Last Admin: 08/09/17 09:33 Dose: 10 mg Enoxaparin Sodium (Lovenox) 40 mg SC 0900 [facility] Last Admin: 08/09/17 09:32 Dose: 40 mg Famotidine (Pepcid) 20 mg PO BID [facility] Last Admin: 08/09/17 09:32 Dose: 20 mg Folic Acid (Folvite) 1 mg PO DAILY [facility] Last Admin: 08/09/17 09:33 Dose: 1 mg Guaifenesin (Robitussin Sf) 200 mg PO Q4H PRN PRN Reason: Cough Hydralazine HCl (Apresoline) 10 mg SLOW IVP Q4H PRN PRN Reason: Systolic BP > 180 Ketorolac Tromethamine (Toradol) 15 mg IVP Q6H PRN PRN Reason: Pain Stop: 08/13/17 09:13 Lisinopril (Zestril) 5 mg PO DAILY [facility] Last Admin: 08/09/17 09:34 Dose: 5 mg Loperamide HCl (Imodium) 2 mg PO PRN PRN PRN Reason: Diarrhea/Loose Stools Loratadine (Claritin) 10 mg PO DAILYPRN PRN PRN Reason: Sinus Symptoms Magnesium Hydroxide (Milk Of Magnesium) 30 ml PO DAILYPRN PRN PRN Reason: Constipation Mineral Oil/White Petrolatum (Eucerin Cream) 0 gm TOP BIDPRN PRN PRN Reason: Dry Skin Miscellaneous Medication (Pharmacy To Dose) 0 each IVPB ASDIR PRN PRN Reason: Pharmacy to Dose VANCOMYCIN Nitroglycerin (Nitrostat) 0.4 mg SL Q5MIN PRN PRN Reason: Chest Pain Ondansetron HCl (Zofran Odt) 4 mg PO Q6H PRN PRN Reason: Nausea/Vomiting Ondansetron HCl (Zofran) 4 mg IVP Q6H PRN PRN Reason: Nausea/Vomiting Phenol (Chloraseptic [place] 180 Ml Bot) 0 ml PO PRN PRN PRN Reason: Sore Throat Prednisone (Prednisone) 40 mg PO [facility] Prednisone (Prednisone) 40 mg PO NOW [facility] Stop: 08/09/17 12:00 Senna (Senokot) 2 tab PO HSPRN PRN PRN Reason: Constipation Sodium Chloride ([place] Nasal [place] 0.65%) 0 ml EA NARE QIDPRN PRN PRN Reason: Nasal Congestion Sodium Chloride (Flush - Normal Saline) 10 ml IVF Q12HR [facility] Last Admin: 08/09/17 09:34 Dose: 10 ml Sodium Chloride (Flush - Normal Saline) 10 ml IVF PRN PRN PRN Reason: Saline Flush Thiamine HCl (Thiamine) 100 mg PO DAILY [facility] Last Admin: 08/09/17 09:33 Dose: 100 mg Zolpidem Tartrate (Ambien) 5 mg PO HSPRN PRN PRN Reason: Insomnia
[2017-08-09] MEDS: Atorvastatin Calcium 40 MG TAB PO SCH (20:32)
[2017-08-10] MEDS ORDERED: predniSONE 20 MG TAB PO SCH (08:00)
[2017-08-10 08:05] VITALS: BP 155/81; TEMP 99.6
[2017-08-10] MEDS: Aspirin 325 MG TAB PO SCH (09:03)
[2017-08-10] MEDS: Colchicine 0.6 MG TAB PO SCH (09:03)
[2017-08-10] MEDS: Clopidogrel Bisulfate 75 MG TAB PO SCH (09:04)
[2017-08-10] MEDS: Famotidine 20 MG TAB PO SCH (09:04)
[2017-08-10] MEDS: Folic Acid 1 MG TAB PO SCH (09:04)
[2017-08-10] MEDS: Carvedilol 3.125 MG TAB PO SCH (09:04)
[2017-08-10] MEDS: Cyanocobalamin (Vitamin B-12) 1,000 MCG TAB PO SCH (09:05)
[2017-08-10] MEDS: Ezetimibe 10 MG TAB PO SCH (09:05)
[2017-08-10] MEDS: Lisinopril 5 MG TAB PO SCH (09:05)
[2017-08-10] MEDS: Enoxaparin Sodium 40 MG/0.4 ML SYRINGE SC SCH (09:05)
--- NOTE | 2017-08-10 10:59 | PDOC.PN ---
- Subjective Encounter Start Date: 08/10/17 Encounter Start Time: 07:00 Patient seen and examined. No new complaints. No overnight events - Objective Resuscitation Status: Resuscitation Status FULL:Full Resuscitation MAR Reviewed: Yes Vital Signs & Weight: Vital Signs (12 hours) Temp Pulse Resp BP BP Pulse Ox 08/10/17 09:05 80 155/81 H 08/10/17 08:00 99.6 F 64 20 155/81 H 97 08/10/17 04:00 99.9 F H 63 18 148/89 H 97 08/09/17 23:54 99.8 F H 74 18 144/87 H 98 Weight Admit Weight 153 lb 6.4 oz Weight 156 lb 14.4 oz I&O: 08/09/17 08/10/17 08/11/17 06:59 06:59 06:59 Intake Total 1200 620 Balance 1200 620 Result Diagrams: 08/08/17 07:22 08/08/17 07:22 EKG Reviewed by me: Yes (nsr) Phys Exam - Physical Examination Constitutional: NAD HEENT: PERRLA, moist MMs, sclera anicteric Neck: no JVD, supple Respiratory: no wheezing, no rales, no rhonchi Cardiovascular: RRR, no significant murmur, no rub Gastrointestinal: soft, non-tender, no distention, positive bowel sounds Musculoskeletal: no edema, pulses present right knee swelling reduced Neurological: non-focal, normal sensation Lymphatic: no nodes Psychiatric: normal affect, A&O x 3 Skin: no rash, normal turgor Dx/Plan (1) Acute ischemic left MCA stroke Code(s): I63.512 - CEREB INFRC D/T UNSP OCCLS OR STENOS OF LEFT MID CEREB ART Status: Acute (2) Elevated troponin Code(s): R74.8 - ABNORMAL LEVELS OF OTHER SERUM ENZYMES Status: Acute (3) Rhabdomyolysis Code(s): M62.82 - RHABDOMYOLYSIS Status: Acute (4) CAD (coronary artery disease) Code(s): I25.10 - ATHSCL HEART DISEASE OF [place] CORONARY ARTERY W/O ANG PCTRS Status: Chronic (5) Dyslipidemia Code(s): E78.5 - HYPERLIPIDEMIA, UNSPECIFIED Status: Chronic (6) Hypertension Code(s): I10 - ESSENTIAL (PRIMARY) HYPERTENSION Status: Chronic (7) Macrocytic anemia Code(s): D53.9 - NUTRITIONAL ANEMIA, UNSPECIFIED Status: Chronic (8) Transaminitis Code(s): R74.0 - NONSPEC ELEV OF LEVELS OF TRANSAMNS & LACTIC ACID DEHYDRGNSE Status: Chronic (9) Fever Code(s): R50.9 - FEVER, UNSPECIFIED Status: Acute (10) Swelling of knee joint, right Code(s): M25.461 - EFFUSION, RIGHT KNEE Status: Acute (11) Systolic dysfunction Code(s): I51.9 - HEART DISEASE, UNSPECIFIED Status: Acute (12) Acute gout Code(s): M10.9 - GOUT, UNSPECIFIED Status: Acute Qualifiers: Gout site: knee Laterality: right - Plan cont current plan of care, PT/OT * medication reviewed as below * symptomatic treatment * see discharge summery Review of Systems - Review of Systems Eyes: negative: Pain, Vision Change, Conjunctivae Inflammation, Eyelid Inflammation, Redness, Other ENT: negative: Ear Pain, Ear Discharge, Nose Pain, Nose Discharge, Nose Congestion, Mouth Pain, Mouth Swelling, Throat Pain, Throat Swelling, Other Respiratory: negative: Cough, Dry, Shortness of Breath, Hemoptysis, SOB with Excertion, Pleuritic Pain, Sputum, Wheezing Cardiovascular: negative: chest pain, palpitations, orthopnea, paroxysmal nocturnal dyspnea, edema, light headedness, other Gastrointestinal: negative: Nausea, Vomiting, Abdominal Pain, Diarrhea, Constipation, Melena, Hematochezia, Other Genitourinary: negative: Dysuria, Frequency, Incontinence, Hematuria, Retention , Other Musculoskeletal: negative: Neck Pain, Shoulder Pain, Arm Pain, Back Pain, Hand Pain, Leg Pain, Foot Pain, Other Skin: negative: Rash, Lesions, Tip, Bruising, Other - Medications/Allergies Allergies/Adverse Reactions: Allergies Allergy/AdvReac Type Severity Reaction Status Date / Time No Known Allergies Allergy Verified 08/05/17 18:02 Medications: Current Medications Acetaminophen (Tylenol) 650 mg PO Q4H PRN PRN Reason: Headache/Fever or Pain Last Admin: 08/09/17 06:41 Dose: 650 mg Hydrocodone Bitart/Acetaminophen ([place] 5/325) 1 tab PO Q4H PRN PRN Reason: Moderate Pain (4-6) Last Admin: 08/07/17 23:50 Dose: 1 tab Al Hydroxide/Mg Hydroxide (Maalox) 30 ml PO Q6H PRN PRN Reason: Heartburn or Indigestion Artificial Tears (Tears Naturale) 0 drop EA EYE PRN PRN PRN Reason: Dry Eyes Aspirin (Aspirin) 325 mg PO DAILY [facility] Last Admin: 08/10/17 09:03 Dose: 325 mg Atorvastatin Calcium (Lipitor) 80 mg PO HS [facility] Last Admin: 08/09/17 20:32 Dose: 80 mg Carvedilol (Coreg) 3.125 mg PO BID [facility] Last Admin: 08/10/17 09:04 Dose: 3.125 mg Clopidogrel Bisulfate (Plavix) 75 mg PO DAILY [facility] Last Admin: 08/10/17 09:04 Dose: 75 mg Colchicine (Colcrys) 0.6 mg PO BID [facility] Last Admin: 08/10/17 09:03 Dose: 0.6 mg Cyanocobalamin (Vitamin B-12) 1,000 mcg PO DAILY [facility] Last Admin: 08/10/17 09:05 Dose: 1,000 mcg Ezetimibe (Zetia) 10 mg PO DAILY [facility] Last Admin: 08/10/17 09:05 Dose: 10 mg Enoxaparin Sodium (Lovenox) 40 mg SC 0900 [facility] Last Admin: 08/10/17 09:05 Dose: 40 mg Famotidine (Pepcid) 20 mg PO BID [facility] Last Admin: 08/10/17 09:04 Dose: 20 mg Folic Acid (Folvite) 1 mg PO DAILY [facility] Last Admin: 08/10/17 09:04 Dose: 1 mg Guaifenesin (Robitussin Sf) 200 mg PO Q4H PRN PRN Reason: Cough Hydralazine HCl (Apresoline) 10 mg SLOW IVP Q4H PRN PRN Reason: Systolic BP > 180 Ketorolac Tromethamine (Toradol) 15 mg IVP Q6H PRN PRN Reason: Pain Stop: 08/13/17 09:13 Lisinopril (Zestril) 5 mg PO DAILY [facility] Last Admin: 08/10/17 09:05 Dose: 5 mg Loperamide HCl (Imodium) 2 mg PO PRN PRN PRN Reason: Diarrhea/Loose Stools Loratadine (Claritin) 10 mg PO DAILYPRN PRN PRN Reason: Sinus Symptoms Magnesium Hydroxide (Milk Of Magnesium) 30 ml PO DAILYPRN PRN PRN Reason: Constipation Mineral Oil/White Petrolatum (Eucerin Cream) 0 gm TOP BIDPRN PRN PRN Reason: Dry Skin Nitroglycerin (Nitrostat) 0.4 mg SL Q5MIN PRN PRN Reason: Chest Pain Ondansetron HCl (Zofran Odt) 4 mg PO Q6H PRN PRN Reason: Nausea/Vomiting Ondansetron HCl (Zofran) 4 mg IVP Q6H PRN PRN Reason: Nausea/Vomiting Phenol (Chloraseptic [place] 180 Ml Bot) 0 ml PO PRN PRN PRN Reason: Sore Throat Prednisone (Prednisone) [facility] Last Admin: 08/10/17 09:04 Dose: 40 mg Senna (Senokot) 2 tab PO HSPRN PRN PRN Reason: Constipation Sodium Chloride ([place] Nasal [place] 0.65%) 0 ml EA NARE QIDPRN PRN PRN Reason: Nasal Congestion Sodium Chloride (Flush - Normal Saline) 10 ml IVF Q12HR [facility] Last Admin: 08/10/17 09:06 Dose: Not Given Sodium Chloride (Flush - Normal Saline) 10 ml IVF PRN PRN PRN Reason: Saline Flush Thiamine HCl (Thiamine) 100 mg PO DAILY [facility] Last Admin: 08/10/17 09:03 Dose: 100 mg Zolpidem Tartrate (Ambien) 5 mg PO HSPRN PRN PRN Reason: Insomnia
--- NOTE | 2017-08-10 11:34 | DIS ---
DATE OF ADMISSION: 08/05/2017 DATE OF DISCHARGE: 08/10/2017 PRIMARY CARE PHYSICIAN: [facility] call admission. DISCHARGE DISPOSITION: Home. PRIMARY DISCHARGE DIAGNOSES: 1. Acute ischemic left middle cerebral artery stroke with expressive aphasia. 2. Acute gout. 3. Systemic inflammatory response syndrome due to acute gout. 4. Rhabdomyolysis. 5. Systolic dysfunction. SECONDARY DISCHARGE DIAGNOSES: Abnormal liver function test, macrocytic anemia, hypertension, dyslip idemia, coronary artery disease, history of cerebrovascular accident in past. PRIMARY PROCEDURE/OPERATION: Arthrocentesis of right knee. RADIOLOGICAL INVESTIGATION: CT angiography negative for any carotid stenosis. CT brain showed subac [place] or acute multifocal infarction in left MCA territory. Echocardiography showed EF 45%-50%. MRI b rain showed subacute infarction in right parietooccipital region. Knee x-ray showed knee effusion on the right side. Chest x-ray was normal. SIGNIFICANT LABORATORY DATA: WBC 7.5, hemoglobin 14.5, platelet 154, MCV 101. INR 1.1. BMP: Sod[place] m 140, potassium 4.1, chloride 108, carbon dioxide 21, BUN 4, creatinine 0.81, calcium 8.7, CK 980, B [place] 721.3, CRP 5.87. Cardiac enzymes negative. Uric acid 3.8, AST 84, ALT 45, alkaline phosphatase 4 3, albumin 3.1, LDL 104. Homocysteine 7.89. TSH 0.78. Urinalysis normal. Synovial fluid WBC count 23,800, synovial uric acid less than 5, positive for pseudogout crystals. Urine drug screen positiv e for cannabinoids. Hepatitis profile negative. Syphilis negative. Blood culture negative. Influe nza negative. Urine culture negative. Synovial culture negative. DISCHARGE MEDICATIONS: Lipitor 10 mg p.o. at bedtime, Coreg 3.125 mg p.o. b.i.d., aspirin 81 mg p.o. daily, Plavix 75 mg p.o. daily, colchicine 0.6 mg p.o. b.i.d. for 7 days, vitamin B12 1000 mcg p.o. daily, Zetia 10 mg p.o. daily, Pepcid 20 mg p.o. b.i.d., lisinopril 5 mg p.o. daily, prednisone 40 mg p.o. daily for 7 days, and thiamine 100 mg p.o. daily. CONTRAINDICATIONS: None. CODE STATUS: FULL CODE. INPATIENT CONSULTANTS: Orthopedic physician was consulted for right knee effusion. Neurology, Dr. Guille Fernandes was following while in hospital. TEST RESULTS PENDING ON DISCHARGE: None. ALLERGIES: No known drug allergy. DISCHARGE PLAN: Post hospital, patient will follow with primary care physician and Neurology as inst ructed. HOSPITAL COURSE: A 61-year-old male who was admitted by me on 08/05/2017. Please see my HPI for fur ther details. This patient woke up during nighttime and he was having expressive aphasia. He called his daughter, and his daughter was not able to understand him and she found something wrong with him and that is why she called 911 and subsequently patient was brought to the emergency room. This pat ient had delayed presentation in the emergency room. Initial CT brain showed multifocal infarct in t he left MCA territory. MRI also confirmed left MCA territory stroke. We did stroke workup while in hospital with CT angiography that was negative. Echocardiography showed systolic dysfunction. While in hospital, entire stroke team saw this patient and patient was doing very well with motor str ength gavin. Only patient's problem was expressive aphasia. He was not able to come up with words. His speech is okay, but he does not come up with the words. Otherwise, he does not have any focal ne urological deficit. He had abnormal LFT that was also related with rhabdomyolysis. We checked hepat itis profile and that was kept negative. We were hydrating him with IV fluids and his CK was improvi ng. We reduced dose of Lipitor to 10 mg p.o. at bedtime upon discharge. We are resuming Lipitor the rapy. While in hospital, we continued with similar medication. While in hospital, he developed feve r and he also developed right knee swelling and that is why we suspected acute gout and we did arthro centesis with the help of orthopedic physician and his crystal was positive for pseudogout. He was t reated with colchicine, prednisone and with significant improvement. He did not have any sepsis type of picture. He was ambulatory. He was clinically fine and we treated as if only pseudogout. The patient is seen and examined at bedside today. He wants to go home today. Please see my progres s note from today for further details. Total time spent on discharge day more than 30 minutes.
== END 2017-08-10 12:09 | disposition home or self-care (01) | DRG 65 ==
LOC: ERS 11:35 → 2SE 14:08
PROVIDERS: ADMIT Internal Medicine; ATTEND Internal Medicine
PROC: 0S9C3ZZ Drainage of Right Knee Joint, Percutaneous Approach (ICD-10-PCS; 2017-08-06)
PROC: B030ZZZ Magnetic Resonance Imaging (MRI) of Brain (ICD-10-PCS; principal; 2017-08-08)
DX: I63.512 Cerebral infarction due to unspecified occlusion or stenosis of left middle cerebral artery (principal); M62.82 Rhabdomyolysis; R47.01 Aphasia; I10 Essential (primary) hypertension; E78.5 Hyperlipidemia, unspecified; I25.10 Atherosclerotic heart disease of native coronary artery without angina pectoris; D53.9 Nutritional anemia, unspecified; M25.461 Effusion, right knee; I51.89 Other ill-defined heart diseases; M10.061 Idiopathic gout, right knee; I25.2 Old myocardial infarction; R50.9 Fever, unspecified; R74.0 Nonspecific elevation of levels of transaminase and lactic acid dehydrogenase [LDH]; R74.8 Abnormal levels of other serum enzymes; R94.5 Abnormal results of liver function studies; Z95.1 Presence of aortocoronary bypass graft; Z80.7 Family history of other malignant neoplasms of lymphoid, hematopoietic and related tissues
CPT/HCPCS: 36415; 36416; 70450; 70498; 70551; 71020; 80048; 80053; 80061; 80074; 80306; 81001; 82550; 82553; 82945; 83090; 83880; 84157; 84443; 84484; 84550; 84560; 85025; 85060; 85610; 85730; 86140; 86780; 87040; 87070; 87086; 87205; 89051; 89060; 93005; 93306; A4216; G8978-GP-CL; G8979-GP-CJ; G8987-GO-CH; G8988-GO-CH; G8989-GO-CH; G9162-GN-CM; J0696; J1650; J3370; J7050; J7506